=== PATIENT | female | born 1970 | race Caucasian/White ===

== ENCOUNTER → 2016-11-11 | Outpatient (CLI) | payer OTHER ==
[~2016-11-11] MED LIST: BACTRIM DS TAB1 EACH PO; IBUPROFEN 400400 M1 PO; IBUPROFEN 800800 M1 PO; LORTAB 7.5/5001 TA3 PO; NORCO 5-325 TA1 EACH PO; SENNA S TABLET1 EACH PO
== END ==
LOC: RAD 10:34
DX: Z12.31 Encounter for screening mammogram for malignant neoplasm of breast (principal)

== ENCOUNTER → 2018-03-08 | Outpatient (CLI) | payer OTHER | LOC: RAD 15:06 | DX: Z12.31 Encounter for screening mammogram for malignant neoplasm of breast (principal) ==